=== PATIENT | male | born 1985 ===

== ENCOUNTER 2023-09-17 05:18 | Emergency (ER) | payer MEDICAID ==
[~2023-09-17] VITALS: Ht 182.9 cm; Wt 81.8 kg
[2023-09-17 05:30] VITALS: TEMP 97.5
[2023-09-17] MEDS ORDERED: BUPR1TAB32 SL (05:34)
[2023-09-17 06:35] VITALS: BP 103/75; PULSE 75; RESP 16
== END 2023-09-17 09:33 | disposition left against medical advice (07) ==
LOC: EMS 05:19
DX: T40.411A Poisoning by fentanyl or fentanyl analogs, accidental (unintentional), initial encounter (principal); Z98.890 Other specified postprocedural states; Y92.89 Other specified places as the place of occurrence of the external cause
CPT/HCPCS: 71045; 93005; 99291